=== PATIENT | male | born 1945 | race Caucasian/White ===

== ENCOUNTER → 2017-01-04 | Outpatient (CLI) | payer BC ==
--- NOTE | 2017-01-04 16:40 | PCVCIMAG ---
APPROVED REPORT Exam: Stress Echocardiogram Indication: SOA Patient Location: Echo lab Stress Nurse: Deidra Steve, RN, [place] Olivia, RN Status: routine Ht: 5 ft 7 in HR: 67 bpm BP: 138/70 mmHg Rhythm: NSR Procedure The patient underwent an Exercise Stress Test using the Ishmael Protocol. Blood pressure, heart rate, and EKG were monitored. An Echocardiogram was performed by maintenance technician in four stages in quad fashion. At peak stress, four selected images were obtained and placed side by side with resting images for comparison. Stress Test Details Stress Test: Exercise stress testing was performed using a Ishmael protocol. HR Resting HR: 67 bpmMax Heart Rate (APMHR): 150 bpm Max HR Achieved: 144 bpmTarget HR (85% APMHR): 127 bpm % of APMHR: 96 HR response to stress: Normal HR response to stress BP Resting BP: 138/70 mmHg Max BP: 152/70 mmHg ECG Resting ECG: Sinus Rhythm Stress ECG: Sinus Rhythm ST Change: Eqivocally ischemic Clinical Reason for Termination: Maximal effort Exercise duration: 9 min sec Highest Stage Achieved: Stage 3: 3.4 mph at 14% grade. Exercise capacity: 10.10 METs Overall Exercise Capacity for Age: Normal Pre-Stress Echo The resting Echocardiogram showed normal left ventricular contractility with an estimated Ejection Fraction of about 55-60%. Post-Stress Echo The stress Echocardiogram showed abnormal left ventricular contractility with an estimated Ejection Fraction of about 60-65%. The stress Echocardiogram demonstrated wall motion abnormality in the inferior, posterior stroud. Conclusion Clinical Response: Ischemic Exercise Capacity: Average Stress ECG Response: Equivocal Stress Echo Images: Ischemic Positive Stress Echocardiogram. rec cardiac cath pt currently refusing cath Other Information Study Quality: Adequate <Conclusion> Positive Stress Echocardiogram. rec cardiac cath pt currently refusing cath
== END | disposition home or self-care (01) ==
LOC: PCVCIMAG 10:13
PROVIDERS: ATTEND Internal Medicine Cardiovascular Disease
DX: I25.9 Chronic ischemic heart disease, unspecified (principal); Z82.49 Family history of ischemic heart disease and other diseases of the circulatory system
CPT/HCPCS: 93325; 93351